=== PATIENT | male | born 1955 | race Caucasian/White ===

== ENCOUNTER 2019-01-15 11:48 | Emergency (ER) | payer OTHER ==
[~2019-01-15] VITALS: Ht 180.3 cm; Wt 99.8 kg
[~2019-01-15 11:48] MED LIST: ACETAMINOPHEN650 M5 PO; ASPIRIN EC81 M1 PO; CARVEDILOL12.5 MG PO; CARVEDILOL25 MG PO; COREG CR20 MG PO; DOCUSATE SODIU100 MG PO; FENOFIBRATE160 MG PO; LIPITOR20 MG PO; LIPITOR80 MG PO; LOPID600 MG PO; LOVAZA1000 MG; LOVAZA1000 MG PO; MULTIVITAMINS1 EAC7 PO; NORCO 5-325 TA1 EACH PO; NORVASC 5 MG TAB5 MG PO; PEPCID40 MG PO; PROCARDIA XL30 MG PO; QUINAPRIL 20 MG20 MG PO; QUINU10 PD PO; SIMETHICON CHEW80 M1 PO; SIMVASTATIN20 MG PO; SIMVASTATIN40 MG PO; XANAX 0.25 MG0.25 MG PO
[2019-01-15 12:04] LABS: HEMATOCRIT 42.4 % (42.0-52.0); HEMOGLOBIN 14.3 gm/dL (14.0-18.0); MCH 31.7 pg (26.0-34.0); MCHC 33.7 g/dL (28.0-37.0); MCV 94.1 fL (80.0-100.0); PLATELET COUNT 221 thou/uL (150-400); RDW 13.4 % (10.5-14.5); WBC 5.1 thou/uL (4.0-11.0)
[2019-01-15 12:08] LABS: ANION GAP 4 mmol/L (7-16); BUN 15 mg/dL (7-18); CHLORIDE 99 mmol/L (98-107); CO2 32 mmol/L (21-32); GLUCOSE 111 mg/dL (74-106); POTASSIUM 4.1 mmol/L (3.5-5.1); SODIUM 135 mmol/L (136-145)
[2019-01-15 12:18] LABS: ALBUMIN 3.7 g/dL (3.4-5.0); MAGNESIUM 1.9 mg/dL (1.8-2.4); SGOT 23 U/L (15-37); SGPT 36 U/L (30-65); TOTAL BILIRUBIN 0.9 mg/dL (<0.1-1.0); TOTAL PROTEIN 7.6 g/dL (6.4-8.2); TROPONIN-I <0.06 ng/mL (<0.06)
[2019-01-15 12:36] LABS: ABSOLUTE NEUTROPHILS 2.7 thou/uL (1.4-8.2)
[2019-01-15 12:38] LABS: ANISOCYTOSIS SLIGHT
[2019-01-15 13:54] LABS: URINE BILIRUBIN NEGATIVE (Negative); URINE BLOOD NEGATIVE (Negative); URINE CLARITY CLEAR; URINE COLOR YELLOW; URINE GLUCOSE-RANDOM* NEGATIVE (Negative); URINE KETONES NEGATIVE (Negative); URINE LEUKOCYTES-REFLEX NEGATIVE (Negative); URINE NITRITE-REFLEX NEGATIVE (Negative); URINE PROTEIN (DIPSTICK) NEGATIVE (Negative); URINE SPECIFIC GRAVITY <= 1.005 (1.005-1.035); URINE UROBILINOGEN 0.2 E.U./dl (0.2-1.0)
[2019-01-15] MEDS ORDERED: DORYX MPC120 MG PO (13:55)
[2019-01-15 14:09] VITALS: BP 130/72
--- NOTE | 2019-01-16 08:00 | EKG ---
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 : 1955 Requested By: Renae Hamlin Order Number: [id number] MD: Peng Goldman Measurements Intervals [place] Rate: 66 P: 48 CA: 185 QRS: -12 QRSD: 169 T: 89 QT: 452 QTc: 474 Interpretive Statements Sinus rhythm Left bundle branch block Compared to ECG 05/04/2014 00:57:09 No significant changes Electronically Signed On 01-16-2019 8:00:49 APPEALS REFEREE by Peng Goldman [email or web address] <ELECTRONICALLY SIGNED> By: Peng Goldman MD, [facility] 01/16/19 0800 1154 1154 Peng Goldman MD, FACC /EPI
== END 2019-01-15 14:09 | disposition home or self-care (01) ==
LOC: ER 11:48
PROVIDERS: Nurse Practitioner Family
DX: J18.1 Lobar pneumonia, unspecified organism (principal); R55 Syncope and collapse; I10 Essential (primary) hypertension; E78.5 Hyperlipidemia, unspecified; Z90.49 Acquired absence of other specified parts of digestive tract; Z98.52 Vasectomy status; Z87.891 Personal history of nicotine dependence; Z88.0 Allergy status to penicillin; Z88.1 Allergy status to other antibiotic agents

== ENCOUNTER 2019-02-16 19:22 | Emergency (ER) | payer OTHER ==
[~2019-02-16] VITALS: Ht 180.3 cm; Wt 99.8 kg
[~2019-02-16 19:22] MED LIST changes: +DORYX MPC120 MG PO
[2019-02-16 21:17] LABS: ABSOLUTE NEUTROPHILS 3.6 thou/uL (1.4-8.2); BASOPHILS 0.9 % (0.0-2.0); EOSINOPHILS 4.1 % (0.0-3.0); HEMATOCRIT 44.2 % (42.0-52.0); HEMOGLOBIN 14.6 gm/dL (14.0-18.0); MCH 31.1 pg (26.0-34.0); MCV 94.4 fL (80.0-100.0); MONOCYTES 12.3 % (1.0-8.0); PLATELET COUNT 232 thou/uL (150-400); POLYS 60.7 % (36.0-66.0); RBC 4.68 mil/uL (4.50-6.00); WBC 5.9 thou/uL (4.0-11.0)
[2019-02-16 21:20] LABS: ANION GAP 9 mmol/L (7-16); BUN 15 mg/dL (7-18); CALCIUM 9.6 mg/dL (8.5-10.1); CHLORIDE 103 mmol/L (98-107); CO2 29 mmol/L (21-32); CREATININE 1.1 mg/dL (0.7-1.3); GLUCOSE 118 mg/dL (74-106); POTASSIUM 4.3 mmol/L (3.5-5.1); SODIUM 141 mmol/L (136-145)
[2019-02-16 21:30] LABS: TROPONIN-I <0.06 ng/mL (<0.06)
[2019-02-16] MEDS ORDERED: PROTONIX40 MG PO (21:53)
[2019-02-16 22:10] VITALS: BP 132/84
--- NOTE | 2019-02-17 15:03 | EKG ---
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
== END 2019-02-16 22:11 | disposition home or self-care (01) ==
LOC: ER 19:22
PROVIDERS: Emergency Medicine
DX: F45.8 Other somatoform disorders (principal); I10 Essential (primary) hypertension; E78.5 Hyperlipidemia, unspecified; Z90.49 Acquired absence of other specified parts of digestive tract; Z98.52 Vasectomy status; Z87.891 Personal history of nicotine dependence; Z88.0 Allergy status to penicillin; Z88.1 Allergy status to other antibiotic agents